=== PATIENT | male | born 1975 | race African-American/Black ===

== ENCOUNTER 2017-06-01 05:21 | Emergency (ER) | payer OTHER ==
[2017-06-01] MEDS ORDERED: ALBUTEROL SO4 0.083% IH SOL 2.5 MG/3 ML VIAL.NEB. NEB ONE ×2 (05:44→05:54)
--- NOTE | 2017-06-01 05:49 | PDOC ---
History of Present Illness - General Chief Complaint: Eye Problem Stated Complaint: EYE PROBLEM Time Seen by Provider: 06/01/17 05:35 History Source: Patient - History of Present Illness Initial Comments: 06/01/17 05:44 41 year old male c/o coughing and chest congestion last night woke up this morning with redness to right lower conjunctiva. denies trauma, foreignbody, pain, vision changes to the Eye. Past History - Past Medical History Allergies/Adverse Reactions: Allergies Allergy/AdvReac Type Severity Reaction Status Date / Time No Known Allergies Allergy Verified 06/01/17 05:57 Home Medications: Ambulatory Orders Albuterol Sulfate Inhaler - [Ventolin HFA Inhaler -] 1 - 2 inh PO Q4H PRN #1 inhaler 06/01/17 HTN: Yes - Suicide/Smoking/Psychosocial Hx Smoking History: Never smoked Have you smoked in the past 12 months: No Information on smoking cessation initiated: No Hx Alcohol Use: No Drug/Substance Use Hx: No Review of Systems - Review of Systems HEENTM: Yes: Other (eye redness) Respiratory: Yes: Cough. No: Symptoms reported, See HPI, Orthopnea, Shortness of Breath, SOB with Exertion, SOB at Rest, Stridor, Wheezing, Productive cough, Hemoptysis, Other Cardiac (ROS): No: Symptoms Reported, See HPI, Chest Pain, Edema, Irregular Heart Rate, Lightheadedness, Palpitations, Syncope, Chest Tightness, Other *Physical Exam - Vital Signs Last Vital Signs Temp Pulse Resp BP Pulse Ox 98.1 F 87 18 172/93 97 06/01/17 05:39 06/01/17 05:39 06/01/17 05:39 06/01/17 05:39 06/01/17 05:39 - Physical Exam General Appearance: Yes: Appropriately Dressed HEENT: positive: Other (PERRLA, snellen 20/20 of both eyes, subconjunctival hemorrhage to both eyes noted) Respiratory/Chest: positive: Lungs Clear, Normal Breath Sounds. negative: Chest Tender, Respiratory Distress, Accessory Muscle Use, Labored Respiration, Rapid RR, Decreased Breath Sounds, Paradoxal Breathing, Crackles, Rales, Rhonchi , Stridor, Wheezing, Hyperresonant, Dullness, Plerual Rub, Other Cardiovascular: positive: Regular Rhythm, Regular Rate Extremity: positive: Normal Capillary Refill Integumentary: positive: Normal Color, Dry, Warm Neurologic: positive: Fully Oriented, Alert, Normal Mood/Affect Medical Decision Making - Medical Decision Making 06/01/17 05:50 A: subconjunctival hemorrhage; cough viral uri P: ophthalmology consult outpatient will give albuterol x1 evaluate. 06/01/17 06:08 improvement in cough after albuterol *DC/Admit/Observation/Transfer Diagnosis at time of Disposition: Subconjunctival edema of both eyes, Upper respiratory infection with cough and congestion - Discharge Dispostion Disposition: HOME Condition at time of disposition: Fair - Prescriptions Prescriptions: Albuterol Sulfate Inhaler - [Ventolin HFA Inhaler -] 1 - 2 inh PO Q4H PRN #1 inhaler PRN Reason: Cough - Referrals Referrals: Dahlia Mckinney MD [Primary Care Provider] - Malik Georges [Staff Physician] - Call tomorrow - Patient Instructions Printed Discharge Instructions: DI for Subconjunctival Hemorrhage Additional Instructions: do not wear contact lens. follow up with ophthalmology as soon as possible. - Post Discharge Activity Forms/Work/School Notes: Back to Work
[2017-06-01 05:57] VITALS: BP 172/93; PULSE 87; TEMP 98.1; BMI 34.9
== END 2017-06-01 06:30 | disposition home or self-care (01) ==
LOC: JER 05:21
PROC: 4A07X0Z Measurement of Visual Acuity, External Approach (ICD-10-PCS; principal; 2017-06-01)
PROC: 3E0F7GC Introduction of Other Therapeutic Substance into Respiratory Tract, Via Natural or Artificial Opening (ICD-10-PCS; 2017-06-01)
DX: J06.9 Acute upper respiratory infection, unspecified (principal); H11.33 Conjunctival hemorrhage, bilateral
CPT/HCPCS: 99281-25

== ENCOUNTER 2023-05-24 05:07 | Day surgery (SDC) | payer OTHER ==
[2023-05-19 14:25] VITALS: BMI 37.3
[2023-05-24 09:42] VITALS: TEMP 98.2
[2023-05-24 10:28] VITALS: BP 165/91; PULSE 77; RESP 16
== END 2023-05-24 10:28 | disposition home or self-care (01) ==
LOC: JASU-ENDO 05:07
PROVIDERS: ATTEND Internal Medicine Gastroenterology
PROC: 0DBP8ZX Excision of Rectum, Via Natural or Artificial Opening Endoscopic, Diagnostic (ICD-10-PCS; principal; 2023-05-24 09:00)
DX: Z12.11 Encounter for screening for malignant neoplasm of colon (principal); K62.1 Rectal polyp; K64.8 Other hemorrhoids; K57.30 Diverticulosis of large intestine without perforation or abscess without bleeding
CPT/HCPCS: 88305-TC